=== PATIENT | male | born 1955 | race Caucasian/White ===

== ENCOUNTER 2020-04-27 10:43 | Outpatient (CLI) | payer OTHER, SELFPAY ==
--- NOTE | ~2020-04-27 | XR_ITS ---
XR lumbar spine 2-3V 04/27/2020 11:23 Indication: Low back pain Procedure: 3 views lumbar spine Comparison: 03/07/2014 Findings: Status post spinal fusion at L3-S1. Pedicle screws intact. There are associated laminectomy changes. There are right renal stones in the lower pole. There are the cholecystectomy clips. There is atherosclerosis. No acute fracture or traumatic malalignment. There is disc narrowing at L3-4, L4- 5 and L5-S1. Wedge-shaped appearance at T12,, possibly developmental. Impression: 1: Mild-moderate lumbar spondylosis with fusion at L3-S1. Reviewed, dictated and finalized at location B. [employer] Impression: 1: Mild-moderate lumbar spondylosis with fusion at L3-S1.
== END 2020-04-27 10:44 | disposition home or self-care (01) ==
PROVIDERS: PCP Family Medicine; Visit Provider Family Medicine
DX: M47.896 Other spondylosis, lumbar region (principal); M47.897 Other spondylosis, lumbosacral region
CPT/HCPCS: 72100

== ENCOUNTER 2020-06-24 09:01 | Emergency (ER) | payer OTHER, SELFPAY ==
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
[2020-06-24 09:58] VITALS: BP 157/96; PULSE 66; RESP 16; TEMP 36.1; O2SAT 100
[2020-06-24] MEDS: ACETAMINOPHEN 500 MG TABLET 1000 MG PO (10:31)
[2020-06-24] MEDS: ONDANSETRON HCL ODT 4 MG TABLET PO (10:31)
== END 2020-06-24 11:05 | disposition home or self-care (01) ==
PROVIDERS: Emergency Provider General Practice; PCP Family Medicine
DX: S09.90XA Unspecified injury of head, initial encounter (principal); S39.012A Strain of muscle, fascia and tendon of lower back, initial encounter; S16.1XXA Strain of muscle, fascia and tendon at neck level, initial encounter; S46.911A Strain of unspecified muscle, fascia and tendon at shoulder and upper arm level, right arm, initial encounter; I10 Essential (primary) hypertension; E11.9 Type 2 diabetes mellitus without complications; Z86.711 Personal history of pulmonary embolism; Z79.01 Long term (current) use of anticoagulants; M47.812 Spondylosis without myelopathy or radiculopathy, cervical region; M48.02 Spinal stenosis, cervical region; M47.816 Spondylosis without myelopathy or radiculopathy, lumbar region; Z98.1 Arthrodesis status; V43.52XA Car driver injured in collision with other type car in traffic accident, initial encounter
CPT/HCPCS: 70450; 72100; 72125; 73030; 99284; 99285; A9270

== ENCOUNTER 2022-09-09 11:14 | Emergency (ER) | payer OTHER, SELFPAY ==
[2022-09-09 11:34] VITALS: BP 149/78; PULSE 71; RESP 14; TEMP 36.6; O2SAT 97
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
== END 2022-09-09 12:40 | disposition home or self-care (01) ==
PROVIDERS: Emergency Provider Nurse Practitioner
DX: S51.812A Laceration without foreign body of left forearm, initial encounter (principal); S41.112A Laceration without foreign body of left upper arm, initial encounter; S81.011A Laceration without foreign body, right knee, initial encounter; W19.XXXA Unspecified fall, initial encounter; E11.9 Type 2 diabetes mellitus without complications; I10 Essential (primary) hypertension; Z86.711 Personal history of pulmonary embolism
CPT/HCPCS: 12005; 99213; G0463

== ENCOUNTER 2022-10-18 12:15 | Outpatient (CLI) | payer OTHER, SELFPAY ==
--- NOTE | ~2022-10-18 | XR_ITS ---
EXAMINATION: XR abdomen/kub 1V DATE: 10/18/2022 12:47 INDICATION: Right abdominal pain. TECHNIQUE: A supine view of the abdomen on 2 radiographs was obtained. COMPARISON: CT abdomen and pelvis 11/29/2014 FINDINGS: There are no dilated loops of bowel. There is a small volume of stool in the colon. There i s a 7 mm stone in right kidney. There are changes of posterior fusion procedure in lumbosacral spine. An electrode overlies the sacrum. There are phleboliths in the pelvis. IMPRESSION: 1. Right kidney stone. Reviewed, dictated and finalized at location L. IMPRESSION: 1. Right kidney stone.
--- NOTE | ~2022-10-18 | CT_ITS ---
EXAMINATION: CT abdomen pelvis wo con DATE: 10/18/2022 12:51 INDICATION: Renal stone TECHNIQUE: Computed tomography (CT) of the abdomen and pelvis was performed without intravenous contr ast. Automated exposure control and iterative reconstruction technique were employed. The dose-length product was 764.25 mGy-cm. COMPARISON: CT dated 11/29/2014 FINDINGS: A few calcified pulmonary nodules in the right middle and lower lobes consistent with old granulomato us disease. No interval change in a 3 mm noncalcified left lower lobe nodule also consistent with old granulomatous disease. Heart size is normal. Small amount of atherosclerotic coronary artery calcifi cation. No pericardial or pleural effusion. A few tiny hepatic and splenic calcific lesions consisten t with old granulomatous disease. Cholecystectomy clips the gallbladder fossa. Bilateral adrenal glan ds are normal. Air-fluid level within a 3.5 cm duodenal diverticulum arising from the junction of the second and third portions of the duodenum. A few tiny dystrophic calcifications at the head of the p ancreas likely sequela of chronic pancreatitis. 5 mm and 2 mm nonobstructing stones at a lower pole c tc of the right kidney. Left kidney is normal. 7 x 4 mm stone at the right ureterovesicular junctio n without hydronephrosis. Bladder is normal. There is moderate colonic diverticulosis with a sigmoid and descending colon predominance. There is no adjacent inflammatory change to suggest diverticulitis . Small bowel and appendix are normal. No free intraperitoneal gas or fluid. No pathologically enlarg ed abdominal or pelvic lymphadenopathy. L3-S1 posterior spinal fusion with bilateral vertical katrin and pedicle screw fixation. 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 Sacral nerve root stimulator at the right buttock with lead extending through the left S3 neural foramen. IMPRESSION: 1. Right-sided nephrolithiasis with 7 x 4 mm stone without hydronephrosis at the right ureterovesicul ar junction. 2. Diverticulosis. Reviewed, dictated and finalized at location A. IMPRESSION: 1. Right-sided nephrolithiasis with 7 x 4 mm stone without hydronephrosis at th e right ureterovesicular junction. 2. Diverticulosis.
== END 2022-10-18 12:16 | disposition home or self-care (01) ==
LOC: ANHIMG 12:17
PROVIDERS: PCP Family Medicine; Visit Provider Urology
DX: N20.0 Calculus of kidney (principal); K57.90 Diverticulosis of intestine, part unspecified, without perforation or abscess without bleeding
CPT/HCPCS: 74018; 74176

== ENCOUNTER 2022-10-19 10:22 | Outpatient (CLI) | payer OTHER, SELFPAY ==
--- NOTE | 2022-10-19 14:21 | ECG_ITS ---
Measurements Intervals [place] Rate: 77 P: 241 MT: 355 QRS: -50 QRSD: 138 T: 40 QT: 425 QTc: 483 Interpretive Statements NORMAL SINUS RHYTHM RIGHT BUNDLE BRANCH BLOCK [120+ ms QRS DURATION, UPRIGHT V1, 40+ ms S IN I/aVL/V4/V5/V6] LEFT ANTERIOR FASCICULAR BLOCK [QRS AXIS <= -45, QR IN I, RS IN II] POSSIBLE LEFT VENTRICULAR HYPERTROPHY [VOLTAGE CRITERIA PLUS LAE OR QRS WIDENING] POOR R-WAVE PROGRESSION NO PREVIOUS ECG AVAILABLE FOR COMPARISON Electronically Signed On 10-20-2022 8:48:01 CDT by Raegan Acosta M.D.
== END 2022-10-19 10:23 | disposition home or self-care (01) ==
PROVIDERS: PCP Family Medicine; Visit Provider Urology
DX: I10 Essential (primary) hypertension (principal); Z01.818 Encounter for other preprocedural examination; I45.10 Unspecified right bundle-branch block
CPT/HCPCS: 93005

== ENCOUNTER 2022-10-23 01:10 | Day surgery (SDC) | payer OTHER, SELFPAY ==
[2022-10-19 09:44] VITALS: BMI 31.6
--- NOTE | 2022-10-19 10:14 | PC.NURSE ---
Report to the Outpatient Waiting Room, entrance under the green pavilion located off [facility], at time __6:00AM on date ___10/23/22____. Planned Procedure Time: __7:30AM . Time changes happen often and if your time is changed the preop area will call you the afternoon before. - You and your visitor will be asked to self-screen and do not enter if you have any COVID symptoms. - A mask is optional within the hospital at this time. Patients may have clear liquids (water, carbonated beverages, clear teas, apple juice) until 3 hours prior to surgery with a maximum of 20 ounces. - No food from midnight until time of surgery Take the following medications with a SIP of water the morning of surgery: ___ESCITALOPRAM, LEVOTHYROXINE, METOPROLOL DO NOT STOP ANY OF YOUR OTHER PRESCRIPTION MEDICATIONS PRIOR TO SURGERY ?EXCEPT THE FOLLOWING Medications to discontinue per physician ___HOLD ELIQUIS- 2 DAYS PRE-OP PER DR GURROLA(PER PATIENT)- LAST DOSE 10/20/22. HOLD ASPIRIN NOW PER DR GURROLA(PER PATIENT)-PATIENT TOOK LAST DOSE 10/18/22. HOLD ALL VITAMINS/SUPPLEMENTS 3 DAYS PRE-OP PER ANESTHESIA- LAST DOSE 10/19/22._ Please no make-up, nail portuguese, hairspray, perfume, deodorant, or body powder the day of surgery. No jewelry (including any body piercings) or valuables the day of surgery, leave them at home. Please take a shower or bath the night before, or the morning of, surgery with an antibacterial soap. Wear comfortable, loose fitting clothing. Children are encouraged to wear pajamas. - Jewelry must be removed prior to entering the operating room. Rings and piercings that are not removed may be cut off. - The hospital will not accept responsibility for valuables. - Please leave all valuables, including medications, at home the day of surgery. If you are going home after surgery, a licensed regional driver must drive you home. - NO public transportation without another adult if you receive anesthesia. - We recommend that an adult stay with you for 24 hours following discharge. - We also recommend that you do not drive, make important decision, drink alcoholic beverages, or take any drugs that were not prescribed by your health care provider for at least 24 hours after your discharge time. Follow any additional instructions given to you from your surgeon. If you or anyone in your household have experienced Covid symptoms in the past week, please notify your surgeon or the nurse liaison at the phone number below for possible testing. Telephone instructions given to _PATIENT and asked if any additional questions and then verbalized understanding. Patient advised to call surgeon office or pre surgery nurse liaison [phone] if any additional questions.
[2022-10-23] VITALS (8 sets, daily range): BP systolic 98–160; BP diastolic 53–89; PULSE 62–72; RESP 15–20; TEMP 36–36.5; O2SAT 94–99
--- NOTE | ~2022-10-23 | XR_ITS ---
EXAMINATION: XR retrograde pyelo w/stent RT DATE: 10/23/2022 08:13 INDICATION: Renal stone TECHNIQUE: 5 fluoroscopic images of the abdomen and pelvis were obtained during procedure performed marquis Ravi. Radiologist was not present for the imaging or procedure. The amount of fluoroscopy t irma used during this procedure was 0.3 minutes. COMPARISON: 10/18/2022 FINDINGS: In Class Special Education Teacher image appears to show the previously noted 7 mm stone at the right ureterovesicular junction. A lso noted is a sacral nerve root stimulator projecting over the right buttock with this lead tip proj ecting over the left-sided sacral neural foramina. There are also postoperative changes of prior L3-L 5 laminectomies and L3-S1 instrumented posterior spinal fusion with bilateral vertical katrin and pedicl e screw fixations. Subsequent images demonstrate cannulation and retrograde contrast injection into t he right renal collecting system which appears normal. A wire was advanced into the right renal colle cting system and subsequently the right internal ureteral stent with loops formed over the right jeevan l pelvis on the final image. The region of the right ureterovesicular junction is not imaged followin g the initial consumer loan manager image and is unable to assess whether the stone has been removed. IMPRESSION: 1. 7 mm stone at the right ureterovesicular junction on the initial consumer loan manager image, presumably removed b ut not subsequently imaged and would correlate with procedure note for further detail. 2. Right internal ureteral stent placement in expected position. Reviewed, dictated and finalized at location L. IMPRESSION: 1. 7 mm stone at the right ureterovesicular junction on the initial consumer loan manager image , presumably removed but not subsequently imaged and would correlate with proce dure note for further detail. 2. Right internal ureteral stent placement in expected position.
[2022-10-23] MEDS: LACTATED RINGERS 1,000 ML 30 ML IV CONT (06:50)
[2022-10-23 06:54] LABS: Glucose Point of Care 174 mg/dl (65-105)
[2022-10-23 07:08] LABS: Anion Gap 6 mmol/L (8-16); Blood Urea Nitrogen 14 mg/dL (9-20); Calcium 9.6 mg/dL (8.4-10.2); Carbon Dioxide 28 mmol/L (22-30); Chloride 100 mmol/L (98-107); Estimated CRCL calculation 114 ml/min; Estimated Glomerular Filt Rate > 60; Glucose 184 mg/dL (65-110); Potassium 4.4 mmol/L (3.4-5.0); Sodium 134 mmol/L (137-145)
--- NOTE | 2022-10-23 07:09 | WPDANESEPPF ---
Anes - Initial Pre Proc Eval Procedure: Operation Date: 10/23/22 07:30 Proposed Procedures p Cystoscopy, Right Ureteroscopy, Right Retrograde Pyelogram, Possible Right Stone Extraction, Possible Right Stent Placement, Possible Holmium Laser - Robe Ravi MD Date/Time: 10/23/22 07:09 Surgeon: Robe Ravi MD Pre Op Diagnosis: right kidney stone Patient Data Age: 67 Gender: M Height: 1.85 m Weight: 109 kg Allergies Allergy/AdvReac Type Severity Reaction Status Date / Time azithromycin Allergy Hives Verified 10/19/22 09:32 Home Medications Medication Instructions Recorded Confirmed Type candesartan 32 1 tablet PO QAM 06/24/20 10/19/22 History mg-hydrochlorothiazide 12.5 mg tablet cholecalciferol (vitamin D3) 50 50 mcg PO HS 06/24/20 10/19/22 History mcg (2,000 unit) tablet apixaban 2.5 mg tablet (Eliquis) 2.5 mg PO BID 09/09/22 10/19/22 History blood-glucose sensor (Dexcom G7 09/09/22 09/09/22 History Sensor device) escitalopram oxalate 20 mg tablet 20 mg PO QAM 09/09/22 10/19/22 History furosemide 40 mg tablet 40 mg PO QAM 09/09/22 10/19/22 History insulin glargine-yfgn 100 unit/mL 25 unit subcut QAM 09/09/22 10/19/22 History (3 mL) subcutaneous pen (Semglee (insulin glargine-yfgn) Pen) levothyroxine 125 mcg tablet 125 mcg PO QAM 09/09/22 10/19/22 History meloxicam 15 mg tablet 15 mg PO 3XW 09/09/22 10/19/22 History metformin 500 mg tablet See Rx Instructions .Route .COMPLEX 09/09/22 10/19/22 History metoprolol tartrate 25 mg tablet 25 mg PO QAM 09/09/22 10/19/22 History omeprazole 20 mg capsule,delayed 20 mg PO DAILY 09/09/22 10/19/22 History release pen needle, diabetic 32 gauge x 09/09/22 09/09/22 History tamsulosin 0.4 mg capsule 0.4 mg PO QAM 09/09/22 10/19/22 History aspirin 81 mg tablet,delayed 81 mg PO DAILY 10/19/22 10/19/22 History release pediatric multivitamin 3 tablet PO DAILY 10/19/22 10/19/22 History Laboratory Tests 10/23/22 10/23/22 06:47 06:49 Sodium 134 L mmol/L (137-145) Potassium 4.4 mmol/L (3.4-5.0) Chloride 100 mmol/L (98-107) Carbon Dioxide 28 mmol/L (22-30) Anion Gap 6 L mmol/L (8-16) BUN 14 mg/dL (9-20) Creatinine 0.70 mg/dL (0.7-1.3) Estim Creat Clear Calc 114 ml/min Estimated GFR > 60 (59 - ) Glucose 184 H mg/dL (65-110) POC Capillary Glucose 174 H mg/dl (65-105) Calcium 9.6 mg/dL (8.4-10.2) Patient hx anesthesia problems: none Family hx anesthesia problems: none Results Review: All pre-operative results and documents have been reviewed as part of the pre-operative evaluation. [facility] Past Medical History Medical History (Updated 10/23/22 @ 07:13 by Robert Pacheco DO) [place] esophagus CHF (congestive heart failure) on lasix CVA (cerebral vascular accident) 2008 - no residual Diabetes mellitus Hypertension Hypothyroidism LINO (obstructive sleep apnea) CPAP Pulmonary embolism Surgical History Surgical History History of back surgery Social History Social History Smoking status: Never smoker Alcohol intake: current Drinks per week: 2 Substance use: never Living arrangements: with family Additional living arrangements comments: [facility] Spiritual care concerns: No Anes - Eval Final PreProcedure Day of Procedure 10/23/22 07:09 Patient weight: obese Heart: regular rate and rhythm Lungs: clear to auscultation Airway: Mallampati scale class II Neurological: alert and oriented Last oral intake: >/= 8 hours ASA classification: III Emergent: no Anesthetic plan: proceed Anesthesia type and monitoring: general LMA and standard monitoring Results Review: All pre-operative results and documents have been reviewed as part of the pre-operati
--- NOTE | 2022-10-23 07:21 | WPDHPUPDATE1 ---
History and Physical Update Update Date/Time: 10/23/22 07:21 History and Physical has been reviewed, including an updated exam of the patient. There are NO changes in the patient's condition. Risks, benefits, and alternatives have been discussed and questions answered. Patient agrees to proceed with procedure. Proceed with cystoscopy, right retrograde, right ureteroscopy with stone extraction, laser, stent placement.
[2022-10-23] MEDS: ceFAZolin 2 GM/D5W 50 ML 2 GM/50 ML BAG IVPB (07:29)
[2022-10-23] MEDS: LIDOCAINE HCL 2% GEL UROJET 10 ML PKG MUCOUS MEM (07:49)
--- NOTE | 2022-10-23 08:09 | P.OP_ITS ---
Procedure Note - Detailed Date of Procedure 10/23/22 Pre-op Diagnosis right ureteral stone 7x4mm Post-op Diagnosis Same Procedure Performed Cystoscopy, right retrograde, right ureteroscopy with holmium laser, stone extraction, right ureteral stent placement 4.8 Malaysian contour stent Surgeon Robe Ravi MD Anesthesia General Description of Procedure Patient is taken to the operative suite correctly identified. Once anesthesia was obtained he was placed in dorsal lithotomy position and prepped and draped usual sterile fashion. Nineteen Malaysian scope was inserted the bladder. There were no strictures. Prostate has some lateral lobe hypertrophy. Bladder is without any evidence of tumors. The right ureteral orifice was cannulated with a guidewire. I dilated the orifice with an 8/10 dilator. Rigid ureteral scope was inserted into the orifice. He had the jagged 7 mm stone in the right UVJ a meek. Using a 200 micron fiber we lasered the stone into multiple pieces. These were retrieved sent for analysis. Reinspection revealed no residual stones. Pyelogram was then performed to confirm placement of the stent. 4.8 Malaysian contour stent was then placed with the proximal end coiled in the renal pelvis and the distal end in the bladder. Bladder was drained. 2% viscous lidocaine was inserted into the urethra patient is taken recovery stable condition. He will have the stent removed in 1-2 weeks. This completes dictation. Please send a copy to my office. Estimated Blood Loss 0 Drains Yes Packing No Pathology Yes Complications No immediate complications Condition Stable Disposition PACU
--- NOTE | 2022-10-23 08:17 | SUR.PREOP ---
ALL PREOP CHARTING ENTERED UNDER Vidya GARCIA RN WAS CHARTED BY Sydni URRUTIA RN
[2022-10-23 08:48] LABS: Glucose Point of Care 167 mg/dl (65-105)
[2022-10-23] MEDS: oxyCODONE HCL (*CRX) 5 MG TAB IR PO (09:25)
== END 2022-10-23 10:14 | disposition home or self-care (01) ==
PROVIDERS: Anesthesiology; PCP Family Medicine; Visit Provider Urology
PROC: (CPT 52352; principal; 2022-10-23 07:30)
DX: N20.1 Calculus of ureter (principal); I11.0 Hypertensive heart disease with heart failure; I50.9 Heart failure, unspecified; E11.9 Type 2 diabetes mellitus without complications; E03.9 Hypothyroidism, unspecified; G47.33 Obstructive sleep apnea (adult) (pediatric); Z86.73 Personal history of transient ischemic attack (TIA), and cerebral infarction without residual deficits; Z86.711 Personal history of pulmonary embolism; E66.9 Obesity, unspecified; Z68.34 Body mass index [BMI] 34.0-34.9, adult; Z79.01 Long term (current) use of anticoagulants; Z79.4 Long term (current) use of insulin; Z79.84 Long term (current) use of oral hypoglycemic drugs; Z79.82 Long term (current) use of aspirin
CPT/HCPCS: 52356; 36415; 74420; 80048; 82365; 82948; 88300; 93005; A9270; C1769; C2617; J0690; J1100; J2250; J2405; J2704; J3010; J7120; Q9966

== ENCOUNTER 2023-03-27 17:02 | Emergency (ER) | payer OTHER, SELFPAY ==
--- NOTE | 2023-03-27 17:09 | ED.URI ---
HPI - URI/Sore Throat General Chief Complaint: Upper Respiratory Infection Stated Complaint: Cough/Chills/Fever Time Seen by Provider: 03/27/23 17:35 Source: patient and RN notes reviewed Mode of arrival: ambulatory Limitations: no limitations History of Present Illness HPI Narrative: 67-year-old male presents with concern for cough, chest congestion, sore throat, headache, body aches, fever up to 102. Reports he saw his doctor this morning and was tested for strep and influenza which were negative. He reports he was given Tessalon Perles and Flonase. MD elicited complaint: cough Related Data Home Medications Medication Instructions Recorded Confirmed candesartan 32 1 tablet PO QAM 06/24/20 03/27/23 mg-hydrochlorothiazide 12.5 mg tablet cholecalciferol (vitamin D3) 50 50 mcg PO HS 06/24/20 03/27/23 mcg (2,000 unit) tablet apixaban 2.5 mg tablet (Eliquis) 2.5 mg PO BID 09/09/22 03/27/23 blood-glucose sensor (ArcSoft G7 09/09/22 03/27/23 Sensor device) escitalopram oxalate 20 mg tablet 20 mg PO QAM 09/09/22 03/27/23 furosemide 40 mg tablet 40 mg PO QAM 09/09/22 03/27/23 insulin glargine-yfgn 100 unit/mL 27 unit subcut QAM 09/09/22 03/27/23 (3 mL) subcutaneous pen (Semglee (insulin glargine-yfgn) Pen) levothyroxine 125 mcg tablet 125 mcg PO QAM 09/09/22 03/27/23 meloxicam 15 mg tablet 15 mg PO 3XW 09/09/22 03/27/23 metformin 500 mg tablet See Rx Instructions .Route .COMPLEX 09/09/22 03/27/23 metoprolol tartrate 25 mg tablet 25 mg PO QAM 09/09/22 03/27/23 omeprazole 20 mg capsule,delayed 20 mg PO DAILY 09/09/22 03/27/23 release pen needle, diabetic 32 gauge x 09/09/22 03/27/23 tamsulosin 0.4 mg capsule 0.4 mg PO QAM 09/09/22 03/27/23 aspirin 81 mg tablet,delayed 81 mg PO DAILY 10/19/22 03/27/23 release pediatric multivitamin 3 tablet PO DAILY 10/19/22 03/27/23 gabapentin 100 mg capsule 100 mg PO DAILY 03/27/23 03/27/23 potassium chloride 20 mEq 20 meq PO BID 03/27/23 03/27/23 tablet,extended release(part/cryst) prednisolone acetate 1 % eye 1 drp EACH EYE BID 03/27/23 03/27/23 drops,suspension testosterone cypionate 200 mg/mL 100 mg IM WE 03/27/23 03/27/23 intramuscular oil Allergies Allergy/AdvReac Type Severity Reaction Status Date / Time azithromycin Allergy Hives Verified 03/27/23 17:12 Review of Systems Review of Systems: CONSTITUTIONAL: Reports malaise, fever. EYES: Denies visual changes, redness, or discharge. ENT: Reports rhinorrhea, congestion, and sore throat. CARDIOVASCULAR: Denies chest pain, palpitations, or edema. RESPIRATORY: Reports cough and chest congestion, chest burning with deep breathing and coughing. Denies dyspnea. GASTROINTESTINAL: Denies abdominal pain, nausea, vomiting. Reports diarrhea SKIN: Denies rash or itching. MUSCULOSKELETAL: Reports myalgia. NEUROLOGIC: Reports headache. All systems reviewed & are unremarkable except as noted in HPI and below PMFSH Past Medical History Medical History (Updated 03/27/23 @ 17:48 by Delmy Churchill NP) Caldera esophagus CHF (congestive heart failure) on lasix CVA (cerebral vascular accident) 2008 - no residual Diabetes mellitus Hypertension Hypothyroidism LINO (obstructive sleep apnea) CPAP Pulmonary embolism Surgical History Surgical History History of back surgery Social History Social History Smoking status: Never smoker Alcohol intake: current Drinks per week: 2 Substance use: never Living arrangements: with family Additional living arrangements comments: SPOUSE Spiritual care concerns: No Comments At time of signature, agree with nursing past medical, surgical, social and family history. There is no relevant family history pertinent to the presenting complaint Exam Narrative: GENERAL: Nontoxic-appearing, well-nourished, and in no acute dis
[2023-03-27 17:15] VITALS: BP 147/84; PULSE 98; RESP 16; TEMP 36.6; O2SAT 99
[2023-03-27 17:22] VITALS: BP 147/84; PULSE 98; RESP 16; TEMP 36.6; O2SAT 99
== END 2023-03-27 17:58 | disposition home or self-care (01) ==
PROVIDERS: Emergency Provider Nurse Practitioner
DX: J10.1 Influenza due to other identified influenza virus with other respiratory manifestations (principal); I11.0 Hypertensive heart disease with heart failure; I50.9 Heart failure, unspecified; E11.9 Type 2 diabetes mellitus without complications; E03.9 Hypothyroidism, unspecified; Z79.899 Other long term (current) drug therapy; Z79.4 Long term (current) use of insulin; Z79.82 Long term (current) use of aspirin; Z79.01 Long term (current) use of anticoagulants; Z20.822 Contact with and (suspected) exposure to COVID-19
CPT/HCPCS: 87426; 87804; 99213; G0463

== ENCOUNTER 2023-10-23 22:46 | Emergency (ER) | payer MEDICARE, SELFPAY ==
--- NOTE | ~2023-10-23 | XR_ITS ---
Right elbow Technique: AP, oblique, and lateral views were obtained. Clinical History: Pain Findings: No acute fracture or dislocation is seen. Osseous alignment is anatomic. Joint spaces are p reserved. There is no displacement of the fat pads, and no evidence of joint effusion. There is promi nent soft tissue swelling over the olecranon/posterior elbow. There is probable enthesopathic change at the triceps tendon insertion.. Impression: Prominent soft tissue swelling over the olecranon/posterior elbow. This could reflect hematoma and/or olecranon bursitis. Probable enthesopathic change at the triceps tendon insertion. Reviewed, dictated and finalized at location M. Impression: Prominent soft tissue swelling over the olecranon/posterior elbow. This could r eflect hematoma and/or olecranon bursitis. Probable enthesopathic change at the triceps tendon insertion.
[2023-10-23 22:48] VITALS: BP 138/68; PULSE 88; RESP 15; TEMP 36.5; O2SAT 99
--- NOTE | 2023-10-24 02:09 | ED.UPPEXIN ---
HPI - Extremity Injury (Upper) General Chief Complaint: Extremity Injury, Upper Stated Complaint: elbow right-fall Time Seen by Provider: 10/24/23 01:30 History of Present Illness HPI narrative: 68-year-old male presents to emergency department for left elbow injury that occurred 16 hours ago. Patient states he tripped over a hose and fell onto his right elbow. Since then his elbow has been steadily bleeding. He denies hitting his head or losing consciousness. Denies neck pain or back pain or other injuries acquired. He is anticoagulated on Xarelto. Denies difficulty with range of motion of his elbow. Related Data Home Medications Medication Instructions Recorded Confirmed candesartan 32 1 tablet PO QAM 06/24/20 03/27/23 mg-hydrochlorothiazide 12.5 mg tablet cholecalciferol (vitamin D3) 50 50 mcg PO HS 06/24/20 03/27/23 mcg (2,000 unit) tablet apixaban 2.5 mg tablet (Eliquis) 2.5 mg PO BID 09/09/22 03/27/23 blood-glucose sensor ([employer] G7 09/09/22 03/27/23 Sensor device) escitalopram oxalate 20 mg tablet 20 mg PO QAM 09/09/22 03/27/23 furosemide 40 mg tablet 40 mg PO QAM 09/09/22 03/27/23 insulin glargine-yfgn 100 unit/mL 27 unit subcut QAM 09/09/22 03/27/23 (3 mL) subcutaneous pen (Semglee (insulin glargine-yfgn) Pen) levothyroxine 125 mcg tablet 125 mcg PO QAM 09/09/22 03/27/23 meloxicam 15 mg tablet 15 mg PO 3XW 09/09/22 03/27/23 metformin 500 mg tablet See Rx Instructions .Route .COMPLEX 09/09/22 03/27/23 metoprolol tartrate 25 mg tablet 25 mg PO QAM 09/09/22 03/27/23 omeprazole 20 mg capsule,delayed 20 mg PO DAILY 09/09/22 03/27/23 release pen needle, diabetic 32 gauge x 09/09/22 03/27/23 tamsulosin 0.4 mg capsule 0.4 mg PO QAM 09/09/22 03/27/23 aspirin 81 mg tablet,delayed 81 mg PO DAILY 10/19/22 03/27/23 release pediatric multivitamin 3 tablet PO DAILY 10/19/22 03/27/23 gabapentin 100 mg capsule 100 mg PO DAILY 03/27/23 03/27/23 potassium chloride 20 mEq 20 meq PO BID 03/27/23 03/27/23 tablet,extended release(part/cryst) prednisolone acetate 1 % eye 1 drp EACH EYE BID 03/27/23 03/27/23 drops,suspension testosterone cypionate 200 mg/mL 100 mg IM WE 03/27/23 03/27/23 intramuscular oil Allergies Allergy/AdvReac Type Severity Reaction Status Date / Time azithromycin Allergy Hives Verified 03/27/23 17:12 Review of Systems Review of Systems: All systems reviewed & are unremarkable except as noted in HPI and below PMFSH Past Medical History Medical History Caldera esophagus CHF (congestive heart failure) on lasix CVA (cerebral vascular accident) 2008 - no residual Diabetes mellitus Hypertension Hypothyroidism LINO (obstructive sleep apnea) CPAP Pulmonary embolism Surgical History Surgical History History of back surgery Social History Social History Smoking status: Never smoker Alcohol intake: current Drinks per week: 2 Substance use: never Living arrangements: with family Additional living arrangements comments: SPOUSE Spiritual care concerns: No Exam Narrative: GENERAL: Well-appearing, well-nourished, and in no acute distress. HEAD: Normocephalic, atraumatic. NECK: Supple. CHEST: Clear to auscultation. No respiratory distress. HEART: Regular rate and rhythm. No murmur heard. Normal peripheral pulses. EXTREMITIES: RUE: Hematoma over the bursa of the elbow with a small 0.25 cm laceration that is actively oozing blood. No warmth or erythema, no purulent drainage. Patient has full active and passive range of motion of elbow. No tenderness remainder of extremity. Radial pulse 2 +. Sensation intact. Median, radial and ulnar nerves are intact. SKIN: Warm, dry, no rash. NEURO: No focal deficits. Alert and oriented x3 Course Vital Signs Vital signs: Vi
[2023-10-24] MEDS: CEPHALEXIN 500 MG CAPSULE PO (02:44)
[2023-10-24 03:00] VITALS: BP 149/71; PULSE 84; RESP 15; TEMP 36.7; O2SAT 100
== END 2023-10-24 03:01 | disposition home or self-care (01) ==
PROVIDERS: Emergency Provider Physician Assistant; PCP Family Medicine
DX: S51.011A Laceration without foreign body of right elbow, initial encounter (principal); I50.9 Heart failure, unspecified; I11.0 Hypertensive heart disease with heart failure; E11.9 Type 2 diabetes mellitus without complications; E03.9 Hypothyroidism, unspecified; K22.70 Barrett's esophagus without dysplasia; G47.33 Obstructive sleep apnea (adult) (pediatric); Z86.73 Personal history of transient ischemic attack (TIA), and cerebral infarction without residual deficits; Z86.711 Personal history of pulmonary embolism; Z79.01 Long term (current) use of anticoagulants; Z79.84 Long term (current) use of oral hypoglycemic drugs; Z79.899 Other long term (current) drug therapy; Z79.82 Long term (current) use of aspirin; Z79.4 Long term (current) use of insulin; W18.09XA Striking against other object with subsequent fall, initial encounter
CPT/HCPCS: 12001; 73080; 99283; A9270

== ENCOUNTER 2024-12-01 18:16 | Emergency (ER) | payer MEDICARE, SELFPAY ==
--- NOTE | ~2024-12-01 | XR_ITS ---
Examination: XR chest 2V Clinical History: sob/cough/congestion/tightness 2 days nonsmoker hx pneumonia Comparison: None Technique: PA and Lateral Findings: Cardiomediastinal silhouette normal size and configuration. A few small calcified granulomata. Lungs otherwise clear. No acute bony abnormality. IMPRESSION: 1. No acute cardiopulmonary findings. Reviewed, dictated and finalized at location R.
--- NOTE | 2024-12-01 18:17 | ED.URI ---
HPI - URI/Sore Throat General Chief Complaint: Upper Respiratory Infection Stated Complaint: flu symptoms/chest tightness Time Seen by Provider: 12/01/24 18:20 Source: patient, RN notes reviewed and old records reviewed Mode of arrival: ambulatory Limitations: no limitations History of Present Illness HPI Narrative: 69-year-old gentleman presents to the [facility] with flu-like symptoms, chest tightness. Was diagnosed with COVID on November 19, took pack Slo-bid. Reports thumbs chest tightness, shortness of breath. States that started Saturday night with cough, congestion. Patient with a significant cardiac history of AFib, hypertension as well as diabetes and acid reflux. Patient states that the symptoms were really bad this morning, has improved throughout the day. Onset (ago): day(s) (2) Related Data Home Medications ?Medication ?Instructions ?Recorded ?Confirmed ?Last Taken ?Type candesartan 32 1 tablet PO QAM 06/24/20 12/01/24 Unknown History mg-hydrochlorothiazide 12.5 mg tablet cholecalciferol (vitamin D3) 50 50 mcg PO HS 06/24/20 12/01/24 Unknown History mcg (2,000 unit) tablet apixaban 2.5 mg tablet (Eliquis) 2.5 mg PO BID 09/09/22 12/01/24 Unknown History blood-glucose sensor (Dex[employer] G7 09/09/22 12/01/24 Unknown History Sensor device) escitalopram oxalate 20 mg tablet 20 mg PO QAM 09/09/22 12/01/24 Unknown History furosemide 40 mg tablet 40 mg PO QAM 09/09/22 03/27/23 Unknown History insulin glargine-yfgn 100 unit/mL 27 unit subcut [facility] 09/09/22 12/01/24 Unknown History (3 mL) subcutaneous pen (Semglee (insulin glargine-yfgn) Pen) levothyroxine 125 mcg tablet 125 mcg PO QAM 09/09/22 12/01/24 Unknown History meloxicam 15 mg tablet 15 mg PO 3XW 09/09/22 12/01/24 Unknown History metformin 500 mg tablet See Rx Instructions .Route .COMPLEX 09/09/22 12/01/24 Unknown History metoprolol tartrate 25 mg tablet 25 mg PO QAM 09/09/22 12/01/24 Unknown History omeprazole 20 mg capsule,delayed 20 mg PO DAILY 09/09/22 12/01/24 Unknown History release pen needle, diabetic 32 gauge x 09/09/22 12/01/24 Unknown History tamsulosin 0.4 mg capsule 0.4 mg PO QAM 09/09/22 12/01/24 Unknown History aspirin 81 mg tablet,delayed 81 mg PO DAILY 10/19/22 12/01/24 Unknown History release pediatric multivitamin 3 tablet PO DAILY 10/19/22 12/01/24 Unknown History potassium chloride 20 mEq 20 meq PO BID 03/27/23 12/01/24 Unknown History tablet,extended release(part/cryst) testosterone cypionate 200 mg/mL 100 mg IM WE 03/27/23 12/01/24 Unknown History intramuscular oil Allergies Allergy/AdvReac Type Severity Reaction Status Date / Time azithromycin Allergy Hives Verified 12/01/24 18:19 Review of Systems Review of Systems: All systems reviewed & are unremarkable except as noted in HPI and below Constitutional: Constitutional: Reports no additional constitutional complaints ENT: Reports system reviewed and no additional complaints, except as documented Cardiovascular: Cardiovascular: Reports as per HPI, Denies chest pain and Reports dyspnea Respiratory: Respiratory: Reports no additional respiratory complaints, Denies chest congestion, Denies cough and Denies dyspnea Musculoskeletal: Musculoskeletal: Reports no additional musculoskeletal complaints Integumentary/Breasts: Skin/Breast: Reports system reviewed and no additional complaints, except as docu PMFSH Past Medical History Medical History Hypothyroidism Caldera esophagus LINO (obstructive sleep apnea) CPAP CVA (cerebral vascular accident) 2008 - no residual CHF (congestive heart failure) on lasix Pulmonary embolism Diabetes mellitus Hypertension Surgical History Surgical History History of back surgery Social History Social History Smoking status: Never smoker Alcohol intake: current Drinks per week: 2 Substance use: never Living arrangements: with family Additional living arrangements comments: SPOUSE Spiritual care concerns: No Comments At the time of my signature, I reviewed and agree with the nursing past medical, surgical, social, and family history. There is no relevant family history pertinent to the patient complaint. Exam Const: General: cooperative, healthy appearing, comfortable, no acute distress, well developed, alert and well nourished Nutritional Appearance: well nourished Orientation/consciousness: patient oriented x3 Limitations: no limitations HENMT: Head: normal to inspection Ears: hearing grossly normal bilaterally and external ears normal Face/Nose/Sinus: Normal external nose present Face and sinus: normal facial exam and face symmetric Throat: posterior oropharynx normal Eyes: General: appearance normal, both eyes and all related structures Alignment and Position: alignment normal Neck: Neck: normal visual inspection, full ROM, no lymphadenopathy and no meningeal signs Chest: Chest palpation & inspection: normal inspection of the chest Resp: Effort & Inspection: normal respiratory effort and able to speak in complete sentences Auscultation: clear to auscultation bilaterally, no crackles, no rales, no rhonchi, no wheezes and diminished lung sounds bilateral in the lower lung cummins Cardio: Rate: regular rate Skin: General skin exam: normal color and no rashes or lesions noted Neuro: General: patient oriented x3, gait normal, moves all extremities and no meningeal signs Cognition (Neuro): normal cognition Speech: normal speech Gait exam (Neuro): Normal gait present Extrem: General: normal to inspection, full ROM, capillary refill normal and normal gait Psych: Appearance: grossly normal and well kempt Mental Status: mental status grossly normal Speech and movement: Normal speech and movement present and Clear speech present Affect: normal affect Attitude: cooperative Course Course Level of Care: Express Care Visit Vital Signs Vital signs: Vital Signs Temperature 98.1 F 12/01/24 18:28 Pulse Rate 83 12/01/24 18:28 Respiratory Rate 22 H 12/01/24 18:28 Blood Pressure 169/83 H 12/01/24 18:28 Pulse Oximetry 99 12/01/24 18:28 Oxygen Delivery Room Air 12/01/24 18:28 Temperature 98.1 F 12/01/24 18:28 Pulse Rate 83 12/01/24 18:28 Respiratory Rate 22 H 12/01/24 18:28 Blood Pressure 169/83 H 12/01/24 18:28 Pulse Oximetry 99 12/01/24 18:28 Oxygen Delivery Room Air 12/01/24 18:28 Reviewed MDM - URI/Sore Throat MDM Narrative Medical decision making narrative: Patient sitting in exam room. Patient is nontoxic, vitals stable. Patient presents with cough, congestion that started Saturday night, was in bed all day yesterday. Symptoms have improved since this morning. Recently had COVID in November 19 and took paxlovid X-rays negative Flu AB negative Extensive conversation had with both patient and his with concerns of congestive heart failure which she has a history of. Has no edema currently. Also concerns that this could be cardiac. They are declining ER transfer at this time. reports that she will keep a close eye on him. We discussed further signs and symptoms to call 911 or go directly to the emergency room. Patient would prefer to call primary care provider and or web development manager in the morning. Again reiterated with patient and that if symptoms do get worse, do not wait to see web development manager or primary care provider to please go directly to the emergency room. Discharge instructions reviewed with patient, as well as provided in writing per nursing staff. The instructions also include specific and strict return/GO TO THE ER as well as f/u information. All questions have been answered, and the patient deny any further questions with discharge and discharge plan. Some parts of this dictation were generated by voice recognition software and may contain typographical and/or grammatical inaccuracies. Differential Diagnosis Differential diagnosis: Likely upper respiratory infection, sinusitis, viral infection, bronchitis, influenza and pharyngitis Lab Data Labs: Lab Results 12/01/24 Range/Units 18:26 POC Influenza A Ag Negative (Negative) POC Influenza B Ag Negative (Negative) Imaging Data Radiologist's impression: Examination: XR chest 2V Clinical History: sob/cough/congestion/tightness 2 days nonsmoker hx pneumonia Comparison: None Technique: PA and Lateral Findings: Cardiomediastinal silhouette normal size and configuration. A few small calcified granulomata. Lungs otherwise clear. No acute bony abnormality. IMPRESSION: 1. No acute cardiopulmonary findings. ECG Data EKG #1: Attestation: I personally reviewed and interpreted this ECG as follows: Interpretation: Ventricle rate of 80, KS interval 351, QRS duration 149. States had a electronic atrial pacemaker, patient does not have a pacemaker. Reports a bladder stimulator Marked left axis deviation, right bundle branch block. Possible anterior MD of indeterminate age, abnormal EKG. Critical Care Time Critical Care Time Critical Care Time: No Discharge Plan Discharge Clinical Impression: Viral infection Patient Disposition: Home Condition: Stable Instructions: Antibiotic Form, Viral Syndrome (ED) Additional Instructions: Today your flu test was negative. Your chest x-ray did not show signs of a pneumonia. Your blood pressure was 169/83. We recommend that you follow-up with your primary care provider or web development manager. For worsening symptoms please go directly to the emergency room Patient Language: Burmese Prescriptions: No Action furosemide 40 mg tablet 40 mg PO QAM metformin 500 mg tablet See Rx Instructions .ROUTE .COMPLEX Rx Instructions: 2 tabs PO with breakfast and bedtime 1 tab PO with lunch meloxicam 15 mg tablet 15 mg PO 3XW tamsulosin 0.4 mg capsule 0.4 mg PO QAM levothyroxine 125 mcg tablet 125 mcg PO QAM omeprazole 20 mg capsule,delayed release(DR/EC) 20 mg PO DAILY escitalopram oxalate 20 mg tablet 20 mg PO QAM metoprolol tartrate 25 mg tablet 25 mg PO QAM (DME) [employer] G7 Sensor Device MISCELLANEOUS (DME) pen needle, diabetic 32 gauge x 5/32 needle MISCELLANEOUS insulin glargine-yfgn [Semglee(insulin glarg-yfgn)Pen] 100 unit/mL (3 mL) insulin pen 27 unit SUBCUT QAM Eliquis 2.5 mg Tablet 2.5 mg PO BID potassium chloride 20 mEq tablet,ER particles/crystals 20 meq PO BID testosterone cypionate 200 mg/mL oil 100 mg IM WE candesartan-hydrochlorothiazid 32-12.5 mg Tablet 1 tablet PO QAM cholecalciferol (vitamin D3) 50 mcg (2,000 unit) Tablet 50 mcg PO HS aspirin 81 mg Tablet,Delayed Release (Dr/Ec) 81 mg PO DAILY pediatric multivitamin Tablet,Chewable 3 tablet PO DAILY Follow-up/Referrals: Eliezer,Tono Gallego MD [Primary Care Provider] - 3 Days Time of Disposition: 19:38
[2024-12-01 18:28] VITALS: BP 169/83; PULSE 83; RESP 22; TEMP 36.7; O2SAT 99
--- NOTE | 2024-12-01 18:42 | ECG_ITS ---
Test Date: 2024-12-01 18:41:22 Measurements Intervals [place] Rate: 80 P: 249 MA: 351 QRS: -40 QRSD: 149 T: 22 QT: 395 QTc: 456 Interpretive Statements ELECTRONIC ATRIAL PACEMAKER LEFT ANTERIOR FASCICULAR BLOCK RIGHT BUNDLE BRANCH BLOCK [120+ ms QRS DURATION, UPRIGHT V1, 40+ ms S IN I/aVL/V4/V5/V6] VOLTAGE CRITERIA FOR LVH [MEETS CRITERIA IN ONE OF: R(aVL), S(V1), R(V5), R(V5/V6)+S(V1)] POSSIBLE ANTERIOR MYOCARDIAL INFARCTION [30 ms Q WAVE IN V3/V4, OR R < 0.2 mV IN V4], OF INDETERMINATE AGE ABNORMAL ECG No previous ECG available for comparison Electronically Signed On 12-02-2024 07:37:28 CDT by Kalia Alexander M.D.
[2024-12-01 18:49] LABS: EDINFLUASCREEN Negative (Negative); EDINFLUBSCREEN Negative (Negative)
== END 2024-12-01 19:43 | disposition home or self-care (01) ==
PROVIDERS: Emergency Provider Nurse Practitioner; PCP Family Medicine
DX: B34.9 Viral infection, unspecified (principal); I48.91 Unspecified atrial fibrillation; I11.0 Hypertensive heart disease with heart failure; I50.9 Heart failure, unspecified; E11.9 Type 2 diabetes mellitus without complications; Z79.4 Long term (current) use of insulin; Z79.84 Long term (current) use of oral hypoglycemic drugs; E03.9 Hypothyroidism, unspecified; K22.70 Barrett's esophagus without dysplasia; K21.9 Gastro-esophageal reflux disease without esophagitis; Z86.711 Personal history of pulmonary embolism; Z86.73 Personal history of transient ischemic attack (TIA), and cerebral infarction without residual deficits; Z79.01 Long term (current) use of anticoagulants; Z79.82 Long term (current) use of aspirin
CPT/HCPCS: 71046; 87804; 93005; 99213; G0463